=== PATIENT | female | born 1960 | race Two or more races ===

== ENCOUNTER 2020-01-22 12:44 | Emergency (ER) | payer OTHER ==
[~2020-01-22] VITALS: Ht 180.3 cm; Wt 145.0 kg
[2020-01-22 13:59] LABS: BASOPHILS # (AUTO) 0.1 X10'3 (0-0.2); BASOPHILS % (AUTO) 0.9 % (0-1); EOSINOPHILS # (AUTO) 0.3 X10'3 (0-0.9); EOSINOPHILS % (AUTO) 5.1 % (0-6); HEMOGLOBIN 12.1 g/dl (12.0-16.0); LYMPHOCYTES # (AUTO) 1.5 X10'3 (1.1-4.8); LYMPHOCYTES % (AUTO) 24.7 % (21-51); MEAN CORPUSCULAR HEMOGLOBIN 30.4 PG (27.0-31.0); MEAN CORPUSCULAR HGB CONC 33.6 g/dL (33.0-36.5); MEAN CORPUSCULAR VOLUME 90.4 FL (78-98); MEAN PLATELET VOLUME 9.2 FL (7.4-10.4); MONOCYTES # (AUTO) 0.4 X10'3 (0-0.9); MONOCYTES % (AUTO) 6.8 % (2-12); NEUTROPHILS # (AUTO) 3.7 X10'3 (1.8-7.7); NEUTROPHILS % (AUTO) 62.5 % (42-75); PLATELET COUNT 157 X10'3 (140-440); RED BLOOD COUNT 3.98 X10'6 (4.20-5.60); RED CELL DISTRIBUTION WIDTH 15.4 % (11.5-14.5); WHITE BLOOD COUNT 5.9 X10'3 (4.5-11.0)
[2020-01-22 14:12] LABS: ALANINE AMINOTRANSFERASE 23 U/L (12-78); ALBUMIN 3.7 G/DL (3.4-5.0); ALBUMIN/GLOBULIN RATIO 1.1 (1.1-1.5); ALKALINE PHOSPHATASE 67 IU/L (46-116); ANION GAP 4 (8-16); ASPARTATE AMINO TRANSFERASE 23 U/L (10-37); BILIRUBIN,TOTAL 0.7 MG/DL (0.1-1.0); BLOOD UREA NITROGEN 12 MG/DL (7-18); BUN/CREATININE RATIO 13.6 (6.6-38.0); CALCIUM 9.5 MG/DL (8.5-10.1); CHLORIDE 108 MMOL/L (99-107); CREATININE 0.88 MG/DL (0.40-0.90); GLUCOSE 115 MG/DL (70-104); POTASSIUM 4.3 MMOL/L (3.5-5.1); SODIUM 142 MMOL/L (135-145); TOTAL CARBON DIOXIDE 29.6 MMOL/L (24-32); eGFR 66 ML/MIN
[2020-01-22 15:10] VITALS: BP 118/73
--- NOTE | 2020-01-26 12:27 | NUR ---
Patient BAILEY swab was returned in the mail when going to outpatient lab. I called patient. She admits to sinus congestion. Denies cough, fever or SOB. 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 She will return to ED for swab at 1400 today.
== END 2020-01-22 15:31 | disposition home or self-care (01) ==
LOC: ER 12:45
DX: R53.1 Weakness (principal); Z20.828 Contact with and (suspected) exposure to other viral communicable diseases; R42 Dizziness and giddiness; I48.91 Unspecified atrial fibrillation; E03.9 Hypothyroidism, unspecified; F31.9 Bipolar disorder, unspecified; R06.02 Shortness of breath; R50.9 Fever, unspecified; J98.8 Other specified respiratory disorders; Z88.0 Allergy status to penicillin; Z86.73 Personal history of transient ischemic attack (TIA), and cerebral infarction without residual deficits; Z88.8 Allergy status to other drugs, medicaments and biological substances
CPT/HCPCS: 36415; 71045; 80053; 84484; 85025; 87635; 93005; 99285

== ENCOUNTER 2020-01-26 15:41 | Emergency (ER) | payer OTHER ==
[~2020-01-26] VITALS: Ht 180.3 cm; Wt 144.6 kg
[2020-01-26 15:44] VITALS: BP 138/58
== END 2020-01-26 16:17 | disposition home or self-care (01) ==
LOC: ER 15:41
DX: R06.02 Shortness of breath (principal); Z20.828 Contact with and (suspected) exposure to other viral communicable diseases; R09.81 Nasal congestion; J02.9 Acute pharyngitis, unspecified; I48.91 Unspecified atrial fibrillation; E03.9 Hypothyroidism, unspecified; F31.9 Bipolar disorder, unspecified; Z86.73 Personal history of transient ischemic attack (TIA), and cerebral infarction without residual deficits; Z91.013 Allergy to seafood; Z88.8 Allergy status to other drugs, medicaments and biological substances
CPT/HCPCS: 36415; 99283

== ENCOUNTER 2025-07-23 20:21 | Emergency (ER) | payer OTHER ==
[~2025-07-23] VITALS: Ht 170.2 cm; Wt 145.7 kg
[2025-07-23 20:24] VITALS: TEMP 97.7
--- NOTE | 2025-07-23 20:35 | ELECTROCARDIOGRAPH REPORT ---
[facility] Test Date: 2025-07-23 Test Time: 20:32:47 Pat Name: SWETHA MARRERO Department: EMERGENCY ROOM Room: Gender: F Supervisor: : [id number] Requested By: ROMMEL MAHMOOD Order Number: [id number] Reading MD: Measurements Intervals [place] Rate: 65 P: 31 DE: 192 QRS: -10 QRSD: 119 T: 67 QT: 428 QTc: 445 Interpretive Statements Sinus rhythm Nonspecific intraventricular conduction delay Please click the below link to view image of tracing.
--- NOTE | 2025-07-23 20:51 | RADIOLOGY REPORT ---
CHEST RADIOGRAPH Indication: CP Technique: Single frontal view of the chest was obtained Comparison: None FINDINGS: Lines and Tubes: None Lungs: No focal consolidation. Interstitial prominence. Pleura: No effusion. No pneumothorax. Cardiomediastinal contours: Mild cardiomegaly Bones: No acute osseous abnormality. IMPRESSION: Cardiomegaly with pulmonary vascular congestion.
[2025-07-23 21:02] LABS: MEAN PLATELET VOLUME 9.5 FL (7.4-10.4); RED CELL DISTRIBUTION WIDTH 14.6 % (11.5-14.5)
--- NOTE | 2025-07-23 21:04 | Physician Documentation ---
History of Present Illness ~ Chief Complaint: Chest Pain Stated Complaint: SHOULDER PAIN/CP Time Seen by MD: 21:03 Primary Medical Doctor: NADER WHITESIDE Patient presents to the emergency room for evaluation of right shoulder pain and chest pain. She states she got her right shoulder slammed in a door causing her to fall back and land on a flower bed on her chest. Chest pain is exacerbated with palpation to central sternum. Patient reports history of shoulder problems on affected side. Medication Reconciliation Allergies: Coded Allergies: Penicillins (Verified Allergy, Unknown, 01/22/20) fluoxetine (Verified Allergy, Unknown, 01/22/20) rivaroxaban (Verified Allergy, Unknown, 01/22/20) shellfish derived (Verified Allergy, Unknown, 01/22/20) Past Medical History Past Medical History: CVA/TIA/Stroke, Atrial Fibrillation, Hypothyroidism, Bipolar Past Surgical History: noncontributory Alcohol Use: None Drug Use: none Lives with: Family Lives In: Home Review of Systems ROS All review of systems negative except as per HPI Physical Exam Vital Signs: Temperature: 97.7, Heart Rate: 67, Respiratory Rate: 16, BP: 168/70, Pulse Oximetry: 98, Weight: 145.700 Oxygen Flow Rate: 0 Physical Exam General: Patient is awake, alert, oriented x4 in no acute distress Head: Normocephalic and atraumatic. Eyes: Conjunctival normal. EOMI. PERRL. ENT: Mucous membranes moist. Neck: Supple, trachea is midline. Chest: Clear to auscultation bilaterally without rales, rhonchi, or wheezes. There is no accessory muscle use or retractions. Tenderness to palpation to central sternum Cardiac: RRR without murmurs, gallops, or rubs. Extremity: Pain with manipulation of right shoulder. Bilateral upper extremities neurovascularly intact Progress Results/Orders Results/Orders Orders - ALEKSANDAR JAMISON MD Chest,Single View (07/23/25 20:40) Monitor (07/23/25 20:22) Saline Lock (07/23/25 20:22) Oxygen (07/23/25 20:22) Hs Troponin I W Calculations (07/23/25 22:22) Hs Troponin I W Calculations (07/23/25 23:22) Shoulder, Complete (Min 2 Vws) (07/23/25 21:35) Completed Orders - ALEKSANDAR JAMISON MD Chest,Single View (07/23/25 20:40) Cbc/Diff (07/23/25 20:22) BMP (07/23/25 20:22) PBNP (07/23/25 20:22) Electrocardiogram (07/23/25 20:22) Hs Troponin I W Calculations (07/23/25 20:22) Shoulder, Complete (Min 2 Vws) (07/23/25 21:35) Hydrocodone/Apap 10/325 ([place] 10/325mg (07/23/25 21:15) Vital Signs 07/23/25 20:24 Temp 97.7 Pulse 67 Resp 16 B/P (MAP) 168/70 Pulse Ox 98 O2 Flow Rate 0 Laboratory Tests Test 07/23/25 20:38 07/23/25 20:44 Troponin I High Sensitivity 8 White Blood Count 10.3 Red Blood Count 4.10 L Hemoglobin 13.2 Hematocrit 38.3 Mean Corpuscular Volume 93.4 Mean Corpuscular Hemoglobin 32.3 H Mean Corpuscular Hemoglobin Concent 34.5 Red Cell Distribution Width 14.6 H Platelet Count 226 Mean Platelet Volume 9.5 Neutrophils (%) (Auto) 64.8 Lymphocytes (%) (Auto) 25.8 Monocytes (%) (Auto) 6.4 Eosinophils (%) (Auto) 2.3 Basophils (%) (Auto) 0.7 Neutrophils # (Auto) 6.7 Lymphocytes # (Auto) 2.7 Monocytes # (Auto) 0.7 Eosinophils # (Auto) 0.2 Basophils # (Auto) 0.1 CBC Comment Sodium Level 139 Potassium Level 3.8 Chloride Level 104 Carbon Dioxide Level 30.0 Anion Gap 5 L Blood Urea Nitrogen 13 Creatinine 1.03 H Estimated GFR/1.73 m2 54 BUN/Creatinine Ratio 12.6 Glucose Level 118 H Calcium Level 9.7 Pro-B-Type Natriuretic Peptide 96 Albumin 3.8 Chemistry Comments EKG/XRAY/CT/US/VASC/MRI EKG : Additional Comment EKG interpreted by myself shows time of 2031, rate 65, sinus rhythm, normal a xis, no ST changes Bone/Soft Tissue X-Ray (Ext.) : Additional Comment Shoulder series interpreted by myself is negative for fractures dislocations or foreign bodies Medical Decision Making Additional info obtained from: other Findings Patient presented to the emergency room with shoulder pain and chest pain as per HPI. Differentials include but are not limited to ACS, musculoskeletal pain, fractures, dislocations therefore emergent labs and imaging indicated. Labs and imaging is reassuring. Patient's heart score is reassuring of three. Given history symptoms are likely musculoskeletal in nature. Pain is reproducible. ER precautions discussed. Heart Score: 3 Differential Dx:Considerations: Include: angina, aortic dissection, chest wall pain, cholelithiasis, CHF, costochondritis, esophageal reflux/spasm, gastritis, herpes zoster, myocardial infarction, pericarditis, pleuritis, pancreatitis, pneumonia, pneumothorax, pulmonary embolus, other Departure Disposition: HOME / SELF CARE / HOMELESS Impression: Primary Impression: Chest pain Condition: Stable Discharge Instructions: Chest Wall Pain Referrals: NO PRIMARY CARE PROVIDER (PCP) Signature Scribe Signature: No scribe Attestation: The note accurately reflects work and decisions made by me.Aleksandar Jamison MD 07/23/25 21:55 ALEKSANDAR JAMISON MD Jul 23, 2025 21:04
[2025-07-23 21:12] LABS: CREATININE 1.03 MG/DL (0.40-0.90); PRO BRAIN NATRIURETIC PEPTIDE 96 PG/ML (0-125); TOTAL CARBON DIOXIDE 30.0 MMOL/L (24-32); eCRCL 54 ML/MIN; eGFR 54 ML/MIN
[2025-07-23] MEDS: HYDROcodone/acetaminophen 10/325mg tab PO ONE (21:59)
[2025-07-23 22:00] VITALS: BP 143/63
--- NOTE | 2025-07-23 22:24 | RADIOLOGY REPORT ---
CLINICAL INDICATION: pain RIGHT TECHNIQUE: SHOULDERCMDI SHOULDER, COMPLETE (MIN 2 VWS) Comparison: None FINDINGS/IMPRESSION: : There is no evidence of acute fracture or dislocation. Soft tissues are unremarkable.
[2025-07-24 02:03] VITALS: PULSE 78; RESP 14; O2SAT 98
== END 2025-07-24 02:05 | disposition home or self-care (01) ==
LOC: ER 20:22
DX: R07.9 Chest pain, unspecified (principal); R07.89 Other chest pain; E03.9 Hypothyroidism, unspecified; F31.9 Bipolar disorder, unspecified; I48.91 Unspecified atrial fibrillation; Z86.73 Personal history of transient ischemic attack (TIA), and cerebral infarction without residual deficits; Z91.013 Allergy to seafood; Z88.0 Allergy status to penicillin; Z88.8 Allergy status to other drugs, medicaments and biological substances
CPT/HCPCS: 36415; 71045; 73030; 80048; 83880; 84484; 85025; 93005; 99285